=== PATIENT | female | born 1995 | race Two or more races ===

== ENCOUNTER 2023-03-07 15:49 | Emergency (ER) | payer SELFPAY ==
[2023-03-07 16:21] LABS: BASOPHILS ABSOLUTE AUTO 0.03 K/uL (0.00-0.20); BASOPHILS PERCENT AUTO 0.3 % (0.0-1.0); EOSINOPHILS ABSOLUTE AUTO 0.09 K/uL (0.00-0.45); EOSINOPHILS PERCENT AUTO 0.9 % (0.0-6.0); HEMATOCRIT 38.3 % (37.0-47.0); HEMOGLOBIN 13.2 g/dL (12.0-16.0); IMMATURE GRAN ABSOLUTE AUTO 0.04 K/uL (0.00-0.05); IMMATURE GRAN PERCENT AUTO 0.4 % (0.0-0.4); LYMPHOCYTES ABSOLUTE AUTO 1.87 K/uL (1.00-4.80); LYMPHOCYTES PERCENT AUTO 18.2 % (24.0-44.0); MEAN CORPUSCULAR HEMOGLOBIN 29.5 pg (28.0-32.0); MEAN CORPUSCULAR HGB CONC 34.5 g/dL (32.0-36.0); MEAN CORPUSCULAR VOLUME 85.7 fL (83.0-99.0); MEAN PLATELET VOLUME 11.3 fL (9.4-12.3); MONOCYTES ABSOLUTE AUTO 0.56 K/uL (0.00-0.80); MONOCYTES PERCENT AUTO 5.5 % (0.0-8.0); NEUTROPHILS ABSOLUTE AUTO 7.66 K/uL (1.80-7.70); NEUTROPHILS PERCENT AUTO 74.7 % (41.0-71.0); PLATELET COUNT,PLT 253 K/uL (150-400); RED BLOOD CELL COUNT 4.47 M/uL (4.10-5.30); WHITE BLOOD CELL COUNT,WBC 10.25 K/uL (3.9-11.3)
[2023-03-07 16:58] LABS: A/G RATIO 1.1 (0.9-1.6); ALBUMIN 3.9 g/dL (3.4-5.0); BILIRUBIN TOTAL 0.1 mg/dL (0.2-1.0); CALCIUM 9.7 mg/dL (8.5-10.1); CARBON DIOXIDE,CO2 24.3 mmol/L (21.0-32.0); CREATININE 0.7 mg/dL (0.6-1.0); EST CRCL DRUG DOSING (CG) 107.67 mL/min; POTASSIUM,K 4.1 mmol/L (3.5-5.1); PROTEIN TOTAL,TP 7.6 g/dL (6.4-8.2)
[2023-03-07 18:06] LABS: APPEARANCE,URINE CLEAR; BILIRUBIN,URINE NEGATIVE (NEGATIVE); COLOR,URINE YELLOW; GLUCOSE,URINE NEGATIVE (NEGATIVE); KETONES,URINE TRACE mg/dL (NEGATIVE); LEUKOCYTE ESTERASE,URINE TRACE (NEGATIVE); NITRITE,URINE NEGATIVE (NEGATIVE); OCCULT BLOOD,URINE TRACE-INTACT (NEGATIVE); PROTEIN,URINE NEGATIVE (NEGATIVE); UROBILINOGEN,URINE 0.2 EU/dL (<2.0)
[2023-03-07 18:49] LABS: AMORPHOUS SEDIMENT,URINE MODERATE (NEGATIVE); BACTERIA,URINE 1+ (NEGATIVE); EPITHELIAL CELLS,URINE OCCASIONAL (NONE-FEW); RBC,URINE 0-2 (0-2/HPF)
== END 2023-03-07 18:28 | disposition home or self-care (01) ==
LOC: MW.ED 15:49
DX: O20.8 Other hemorrhage in early pregnancy (principal); O99.891 Other specified diseases and conditions complicating pregnancy; R82.71 Bacteriuria; Z3A.01 Less than 8 weeks gestation of pregnancy
CPT/HCPCS: 36415; 76817; 76817-26; 80053; 81001; 84702; 85025; 86850; 86900; 86901; 87086; 99283; 99284

== ENCOUNTER 2023-10-03 13:42 | Emergency (ER) | payer MEDICAID ==
[2023-10-03] MEDS: Sodium Chloride 0.9% 10 ML Syringe FLUSH PRN (14:35)
[2023-10-03] MEDS: Sodium Chloride 0.9% 1,000 ML IV ONE (14:35)
[2023-10-03] MEDS: Sodium Chloride 0.9% 2.5 ML Syringe FLUSH PRN (14:35)
[2023-10-03 14:42] LABS: BASOPHILS ABSOLUTE AUTO 0.05 K/uL (0.00-0.20); BASOPHILS PERCENT AUTO 0.4 % (0.0-1.0); EOSINOPHILS ABSOLUTE AUTO 0.07 K/uL (0.00-0.45); EOSINOPHILS PERCENT AUTO 0.6 % (0.0-6.0); HEMOGLOBIN 10.8 g/dL (12.0-16.0); IMMATURE GRAN ABSOLUTE AUTO 0.06 K/uL (0.00-0.05); IMMATURE GRAN PERCENT AUTO 0.5 % (0.0-0.4); LYMPHOCYTES ABSOLUTE AUTO 1.52 K/uL (1.00-4.80); LYMPHOCYTES PERCENT AUTO 13.6 % (24.0-44.0); MEAN CORPUSCULAR HEMOGLOBIN 27.5 pg (28.0-32.0); MEAN CORPUSCULAR HGB CONC 32.7 g/dL (32.0-36.0); MEAN PLATELET VOLUME 11.5 fL (9.4-12.3); MONOCYTES ABSOLUTE AUTO 0.75 K/uL (0.00-0.80); MONOCYTES PERCENT AUTO 6.7 % (0.0-8.0); NEUTROPHILS ABSOLUTE AUTO 8.75 K/uL (1.80-7.70); NEUTROPHILS PERCENT AUTO 78.2 % (41.0-71.0); PLATELET COUNT,PLT 217 K/uL (150-400); RED BLOOD CELL COUNT 3.93 M/uL (4.10-5.30)
[2023-10-03 15:14] LABS: A/G RATIO 0.5 (0.9-1.6); ALBUMIN 2.3 g/dL (3.4-5.0); BILIRUBIN TOTAL 0.2 mg/dL (0.2-1.0); CALCIUM 8.8 mg/dL (8.5-10.1); CARBON DIOXIDE,CO2 19.8 mmol/L (21.0-32.0); CREATININE 0.6 mg/dL (0.6-1.0); EST CRCL DRUG DOSING (CG) 125.61 mL/min; PROTEIN TOTAL,TP 6.9 g/dL (6.4-8.2)
[2023-10-03 15:20] LABS: CORONAVIRUS COVID-19 NAA NEGATIVE (NEGATIVE); INFLUENZA A NAA NEGATIVE (NEGATIVE); INFLUENZA B NAA NEGATIVE (NEGATIVE); RESPIRATORY SYNCYTIAL VIR NAA NEGATIVE (NEGATIVE)
== END 2023-10-03 16:07 | disposition home or self-care (01) ==
LOC: MW.ED 13:42
DX: O99.613 Diseases of the digestive system complicating pregnancy, third trimester (principal); R19.7 Diarrhea, unspecified; K21.9 Gastro-esophageal reflux disease without esophagitis; Z79.899 Other long term (current) drug therapy; Z79.4 Long term (current) use of insulin; Z90.49 Acquired absence of other specified parts of digestive tract; Z3A.38 38 weeks gestation of pregnancy
CPT/HCPCS: 0241U; 36415; 80053; 85025; 96360; 99284; J3490; J7030; 99282

== ENCOUNTER 2023-10-08 03:00 | Inpatient (IN) | payer MEDICAID ==
[2023-10-08] MEDS ORDERED: Oxytocin 10 Units/1 ML SDV IM PRN ×2 (05:36→09:29)
[2023-10-08] MEDS ORDERED: Sodium Chloride 0.9% 2.5 ML Syringe FLUSH PRN (05:36)
[2023-10-08] MEDS ORDERED: Sodium Chloride 0.9% 20 ML SDV IV PRN (05:36)
[2023-10-08] MEDS ORDERED: Carboprost Tromethamine 250 MCG/1 mL Vial IM PRN (05:36)
[2023-10-08] MEDS ORDERED: Sodium Chloride 0.9% 10 ML Syringe FLUSH PRN (05:36)
[2023-10-08] MEDS ORDERED: Misoprostol 200 MCG Tab RECTAL PRN ×2 (05:36→09:29)
[2023-10-08] MEDS ORDERED: Tranexamic Acid IN NACL,ISO-OS 1,000 MG in Premix Bag 1 BAG IV PRN (05:36)
[2023-10-08] MEDS ORDERED: Methylergonovine 0.2 MG/1 ML Amp IM PRN ×2 (05:36→09:29)
[2023-10-08] MEDS ORDERED: Oxytocin/0.9 % Sodium Chloride 30 UNIT/500 ML BAG IV SCH (05:45)
[2023-10-08] MEDS: Lactated Ringers 1,000 ML IV SCH ×2 (05:52→10:09)
[2023-10-08 06:02] LABS: HEMATOCRIT 33.4 % (37.0-47.0); MEAN CORPUSCULAR HEMOGLOBIN 27.3 pg (28.0-32.0); MEAN CORPUSCULAR HGB CONC 32.9 g/dL (32.0-36.0); MEAN CORPUSCULAR VOLUME 82.9 fL (83.0-99.0); MEAN PLATELET VOLUME 12.2 fL (9.4-12.3); PLATELET COUNT,PLT 240 K/uL (150-400); RED BLOOD CELL COUNT 4.03 M/uL (4.10-5.30); WHITE BLOOD CELL COUNT,WBC 12.19 K/uL (3.9-11.3)
[2023-10-08 06:31] LABS: CALCIUM 8.9 mg/dL (8.5-10.1); CARBON DIOXIDE,CO2 17.7 mmol/L (21.0-32.0); CREATININE 0.8 mg/dL (0.6-1.0); EST CRCL DRUG DOSING (CG) 94.21 mL/min; POTASSIUM,K 4.1 mmol/L (3.5-5.1)
[2023-10-08] MEDS ORDERED: HYDROmorphone 1 MG/ML Syringe IVPUSH PRN (06:46)
[2023-10-08] MEDS ORDERED: Naloxone 0.4 MG/ML SDV IVPUSH PRN (06:46)
[2023-10-08] MEDS ORDERED: droPERidol 5 MG/2 ML SDV IVPUSH PRN (06:46)
[2023-10-08] MEDS ORDERED: Albuterol 0.083% 2.5 MG/3 ML Neb Soln NEB PRN (06:46)
[2023-10-08] MEDS ORDERED: fentaNYL 100 MCG/2 ML SDV IVPUSH PRN (06:46)
[2023-10-08] MEDS ORDERED: Morphine 2 MG/ML SYRINGE IVPUSH PRN (06:46)
[2023-10-08] MEDS ORDERED: fentaNYL 50 MCG/ML SDV IVPUSH PRN (06:46)
[2023-10-08] MEDS ORDERED: diphenhydrAMINE 50 MG/ML SDV IVPUSH PRN ×2 (06:46→09:29)
[2023-10-08] MEDS ORDERED: ePHEDrine 50 MG/ML SDV IVPUSH PRN (06:46)
[2023-10-08] MEDS ORDERED: Ondansetron 4 MG/2 ML SDV IVPUSH PRN ×2 (06:46)
[2023-10-08] MEDS ORDERED: EPINEPHrine 1 MG/1 ML Amp ONE (07:29)
[2023-10-08] MEDS ORDERED: Ropivacaine 0.5% 5 MG/ML 30 ML SDV ONE (07:29)
[2023-10-08] MEDS ORDERED: Ondansetron 4 MG/2 ML SDV ONE (07:29)
[2023-10-08] MEDS ORDERED: ceFAZolin 1 GM Vial ONE (07:29)
[2023-10-08] MEDS ORDERED: Ketorolac 30 MG/ML SDV ONE (07:29)
[2023-10-08] MEDS ORDERED: Oxytocin 10 Units/1 ML SDV ONE (07:29)
[2023-10-08] MEDS ORDERED: Bupivacaine 0.25% 30 ML SDV ONE (07:29)
[2023-10-08] MEDS ORDERED: Morphine PF 10 MG/10 ML SDV ONE (07:30)
[2023-10-08] MEDS ORDERED: fentaNYL 100 MCG/2 ML SDV ONE (07:30)
[2023-10-08] MEDS ORDERED: Phenylephrine HCl In 0.9% NaCl 1 MG/10 ML Syringe ONE ×4 (07:38→08:45)
[2023-10-08] MEDS: Citric Acid/Sodium Citrate Solution 30 ML Cup PO ONE (08:26)
[2023-10-08] MEDS: ceFAZolin 2 GM in Sodium Chloride 0.9% 50 ML IV ONE (08:26)
[2023-10-08] MEDS ORDERED: ePHEDrine 50 MG/ML SDV ONE (08:50)
[2023-10-08] MEDS ORDERED: Phenylephrine 1% 10 MG/ML SDV ONE (08:52)
[2023-10-08] MEDS ORDERED: Bisacodyl 10 MG Supp RECTAL PRN (09:29)
[2023-10-08] MEDS ORDERED: Acetaminophen/oxyCODONE 325-5 MG Tab PO PRN (09:29)
[2023-10-08] MEDS ORDERED: Lanolin 100% Cream 7 GM Tube TOP PRN (09:29)
[2023-10-08] MEDS ORDERED: Aluminum Hydroxide/Magnesium Hydroxide/Simethicone XS Susp 30 ML Cup PO PRN (09:29)
[2023-10-08 09:40] LABS: PH,UMBILICAL ARTERIAL 7.202 (7.18-7.38)
[2023-10-08 09:41] LABS: PH,UMBILICAL VENOUS 7.27 (7.25-7.45)
[2023-10-08] MEDS: Ondansetron 4 MG/2 ML SDV IVPUSH PRN (10:09)
[2023-10-08] MEDS: Metoclopramide 10 MG/2 ML SDV IVPUSH PRN (11:40)
[2023-10-08] MEDS: Acetaminophen 1,000 MG in Premix Bag 1 BAG IV SCH (11:40)
[2023-10-08] MEDS: Simethicone 80 MG Tab.Chew PO SCH (11:40)
[2023-10-08] MEDS: Ketorolac 30 MG/ML SDV IVPUSH SCH (14:54)
[2023-10-08] MEDS: Docusate Sodium 100 MG Cap PO SCH (21:04)
[2023-10-09 06:05] LABS: HEMATOCRIT 25.8 % (37.0-47.0); HEMOGLOBIN 8.5 g/dL (12.0-16.0)
[2023-10-09] MEDS: Sodium Ferric Gluconate Cmplex 125 MG in Sodium Chloride 0.9% 100 ML IV ONE (10:07)
[2023-10-09] MEDS: Acetaminophen/oxyCODONE 325-5 MG Tab PO PRN ×2 (11:37→22:17)
[2023-10-09] MEDS: Ibuprofen 800 MG Tab PO PRN (22:16)
== END 2023-10-10 13:30 | disposition home or self-care (01) | DRG 788 ==
LOC: MW.OB 03:00
PROVIDERS: ADMIT Obstetrics & Gynecology; ATTEND Obstetrics & Gynecology
PROC: 10D00Z1 Extraction of Products of Conception, Low, Open Approach (ICD-10-PCS; principal; 2023-10-08 08:00)
DX: O34.211 Maternal care for low transverse scar from previous cesarean delivery (principal); O24.424 Gestational diabetes mellitus in childbirth, insulin controlled; O99.214 Obesity complicating childbirth; O99.02 Anemia complicating childbirth; O99.344 Other mental disorders complicating childbirth; F31.9 Bipolar disorder, unspecified; Z3A.39 39 weeks gestation of pregnancy; Z37.0 Single live birth
CPT/HCPCS: 01961; 36415; 59025; 80048; 82803; 82947; 85014; 85018; 85027; 86592; 86850; 86900; 86901; A9270-GY; J0131; J0171; J0665; J0690; J1100; J1885; J2274; J2371; J2405; J2590; J2765; J2795; J2916; J3010; J3490; J7120

== ENCOUNTER 2023-11-12 17:34 | Emergency (ER) | payer MEDICAID ==
[2023-11-12 20:05] LABS: BASOPHILS ABSOLUTE AUTO 0.03 K/uL (0.00-0.20); BASOPHILS PERCENT AUTO 0.4 % (0.0-1.0); EOSINOPHILS ABSOLUTE AUTO 0.13 K/uL (0.00-0.45); EOSINOPHILS PERCENT AUTO 1.6 % (0.0-6.0); HEMATOCRIT 36.3 % (37.0-47.0); HEMOGLOBIN 11.7 g/dL (12.0-16.0); IMMATURE GRAN ABSOLUTE AUTO 0.02 K/uL (0.00-0.05); IMMATURE GRAN PERCENT AUTO 0.2 % (0.0-0.4); LYMPHOCYTES ABSOLUTE AUTO 1.97 K/uL (1.00-4.80); LYMPHOCYTES PERCENT AUTO 24.3 % (24.0-44.0); MEAN CORPUSCULAR HEMOGLOBIN 26.4 pg (28.0-32.0); MEAN CORPUSCULAR HGB CONC 32.2 g/dL (32.0-36.0); MEAN CORPUSCULAR VOLUME 81.9 fL (83.0-99.0); MEAN PLATELET VOLUME 11.5 fL (9.4-12.3); MONOCYTES ABSOLUTE AUTO 0.45 K/uL (0.00-0.80); MONOCYTES PERCENT AUTO 5.5 % (0.0-8.0); NEUTROPHILS ABSOLUTE AUTO 5.51 K/uL (1.80-7.70); PLATELET COUNT,PLT 246 K/uL (150-400); RED BLOOD CELL COUNT 4.43 M/uL (4.10-5.30); WHITE BLOOD CELL COUNT,WBC 8.11 K/uL (3.9-11.3)
[2023-11-12 20:37] LABS: A/G RATIO 1.1 (0.9-1.6); ALBUMIN 3.9 g/dL (3.4-5.0); BILIRUBIN TOTAL 0.3 mg/dL (0.2-1.0); CARBON DIOXIDE,CO2 25.4 mmol/L (21.0-32.0); CREATININE 0.9 mg/dL (0.6-1.0); EST CRCL DRUG DOSING (CG) 83.74 mL/min; POTASSIUM,K 3.9 mmol/L (3.5-5.1); PROTEIN TOTAL,TP 7.5 g/dL (6.4-8.2)
[2023-11-12] MEDS: Cephalexin 500 MG Cap PO ONE (21:33)
== END 2023-11-12 21:35 | disposition home or self-care (01) ==
LOC: MW.ED 17:34
DX: L03.311 Cellulitis of abdominal wall (principal); E66.9 Obesity, unspecified; Z90.49 Acquired absence of other specified parts of digestive tract; Z79.899 Other long term (current) drug therapy; Z68.41 Body mass index [BMI] 40.0-44.9, adult; Z75.8 Other problems related to medical facilities and other health care
CPT/HCPCS: 36415; 80053; 85025; 99284; A9270; 99283